=== PATIENT | male | born 1965 | race Two or more races ===

== ENCOUNTER 2016-02-23 18:53 | Emergency (ER) | payer SELFPAY ==
[2016-02-23] MEDS ORDERED: SODIUM CHLORIDE 0.9% 2,000 ML ONE (19:35)
[2016-02-23] MEDS ORDERED: ONDANSETRON 4 MG/2ML 2 ML VIAL ONE ×2 (19:35→21:54)
[2016-02-23] MEDS ORDERED: METOCLOPRAMIDE HCL 5 MG/ML 2ML VIAL ONE (19:36)
[2016-02-23] MEDS ORDERED: HALOPERIDOL LACTATE 5 MG/1 ML AMP ONE ×2 (19:40→22:58)
[2016-02-23 20:03] LABS: ABSOLUTE NEUTROPHIL COUNT 6.1 K/mm3 (1.8-7.7); BASO % 0.2 % (0.2-1.0); HEMATOCRIT 30.9 % (32.0-52.0); HEMOGLOBIN 10.6 gm/l (14.0-18.0); IMM NEUT # 0.1 K/mm3 (0-0.2); IMM NEUT% 0.5 % (0-1); LYMPH # 1.8 (1.0-4.8); MEAN CORPUSCULAR HEMOGLOBIN 35.7 pg (27.0-31.0); MEAN CORPUSCULAR HGB CONC 34.3 g/dl (33.0-37.0); MEAN PLATELET VOLUME 10.4 fl (7.4-10.4); MONO # 1.3 (0.0-0.8); MONO % 14.3 % (4-12); PLATELET COUNT 126 K/mm3 (130-400); RED CELL DISTRIBUTION WIDTH 12.7 % (11.5-14.5)
[2016-02-23 20:21] LABS: INR 1.51; PROTHROMBIN TIME 16.2 SECONDS (9.3-11.4)
[2016-02-23 20:22] LABS: ALB/GLOB RATIO 0.7 (>1.0); ALBUMIN 2.3 gm/dL (3.5-5.7); CALCIUM 7.4 mg/dL (8.6-10.3); MAGNESIUM 2.2 mg/dL (1.9-2.7)
[2016-02-23 20:27] LABS: TROPONIN I < 0.01 ng/ml (0.0-0.06)
[2016-02-23 20:30] LABS: CKMB ISOENZYME 1.8 ng/ml (0.6-6.3)
--- NOTE | 2016-02-23 21:06 | RAD ---
Exam: Portable chest COMPARISON: 12/27/2004 INDICATION: Vomiting blood. FINDINGS: A supine AP portable view of the chest demonstrate a normal cardiomediastinal silhouette. Lung volumes are low. There is no focal airspace disease or pleural effusion. Bones of the chest wall within normal limits. IMPRESSION: No acute pulmonary process.
[2016-02-23 21:35] LABS: CALCIUM 7.1 mg/dL (8.6-10.3)
[2016-02-23] MEDS ORDERED: SODIUM CHLORIDE 0.9% IV ONE (22:00)
[2016-02-23] MEDS ORDERED: PANTOPRAZOLE SODIUM 80 MG in SODIUM CHLORIDE 0.9% 100 ML IV ONE (22:00)
[2016-02-23] MEDS ORDERED: OCTREOTIDE ACETATE IV ONE (22:00)
[2016-02-23] MEDS ORDERED: OCTREOTIDE ACETATE 500 MCG/ML ONE (22:01)
[2016-02-23] MEDS ORDERED: CEFTRIAXONE 1 GRAM DUPLEX 50 ML IV ONE (22:02)
[2016-02-23] MEDS ORDERED: PANTOPRAZOLE SODIUM 40 MG VIAL IV ONE (22:11)
[2016-02-23] MEDS ORDERED: SODIUM CHLORIDE 0.9% 100 ML IV ONE ×2 (22:12→23:09)
[2016-02-23] MEDS ORDERED: OCTREOTIDE ACETATE 100 MCG/ML AMP IV ONE (22:15)
[2016-02-23] MEDS ORDERED: DEXTROSE 10% 250 ML IV ONE (22:45)
[2016-02-23] MEDS ORDERED: DEXTROSE 10% IV ONE (22:45)
[2016-02-23] MEDS ORDERED: DIAZEPAM 5 MG/ML SYRINGE 2 ML ONE (22:57)
[2016-02-23] MEDS ORDERED: CALCIUM GLUCONATE 1,000 MG/10 ML VIAL ONE ×2 (22:58→23:09)
[2016-02-23] MEDS ORDERED: INSULIN REGULAR HUMAN (DOSE) 100 UNITS/1 ML ONE (23:07)
[2016-02-23] MEDS ORDERED: LIDOCAINE 2% UROJECT 10 ML ONE (23:13)
[2016-02-23] MEDS ORDERED: FUROSEMIDE 40 MG/4 ML VIAL ONE (23:23)
[2016-02-24 00:17] LABS: URINE BILIRUBIN NEGATIVE (NEGATIVE); URINE BLOOD 2+ (NEGATIVE); URINE GLUCOSE (UA) NEGATIVE (NEGATIVE); URINE LEUKOCYTE ESTERASE NEGATIVE (NEGATIVE); URINE NITRITE NEGATIVE (NEGATIVE); URINE PROTEIN TRACE (NEGATIVE)
[2016-02-24 00:18] LABS: URINE APPEARANCE CLEAR; URINE COLOR YELLOW; URINE UROBILINOGEN 4 mg/dL (0-1 mg/dl)
[2016-02-24 00:25] LABS: URINE BACTERIA TRACE; URINE WBC 0-2 /hpf
== END 2016-02-24 00:36 | disposition short-term general hospital (02) ==
LOC: ED 18:53
DX: K92.2 Gastrointestinal hemorrhage, unspecified (principal); R00.0 Tachycardia, unspecified; R17 Unspecified jaundice; R73.9 Hyperglycemia, unspecified
CPT/HCPCS: 83605; 83690; 82140; 85025; 82550; 82553; 80048; 80053; 80307; 83735; 85610; 84484; 81001; 71010; 86920 ×2; 86922 ×2; 86921 ×2; 86901; 86850 ×3; 96375 ×6; 96376; 99291 ×2; 96361 ×5; 96365 ×2; 96367; 99292 ×6; 82962 ×2; 93005; 36430; J0610; J1630 ×2; J1940; C9113; J2354 ×2; A9270; J3360; J2405; J7050 ×3; J7030; J1815; J0696; P9016 ×3